=== PATIENT | male | born 1975 | race Caucasian/White ===

== ENCOUNTER 2020-01-31 16:04 | Emergency (ER) | payer MEDICAID, OTHER ==
[~2020-01-31] VITALS: Ht 188 cm; Wt 70.3 kg
[2020-01-31 16:18] VITALS: BP 176/125
[2020-01-31] MEDS ORDERED: NAPROXEN 500 MG TABLET PO SCH (16:30)
[2020-01-31] MEDS ORDERED: NAPROXEN 250 MG TABLET ONE (16:35)
== END 2020-01-31 16:49 | disposition home or self-care (01) ==
LOC: ER 16:04
DX: G89.29 Other chronic pain (principal); M54.5 Low back pain; L30.9 Dermatitis, unspecified; F17.200 Nicotine dependence, unspecified, uncomplicated; I10 Essential (primary) hypertension; Z59.0 Homelessness; Z88.0 Allergy status to penicillin

== ENCOUNTER → 2020-04-29 | Emergency (ER) | payer MEDICAID ==
--- NOTE | 2020-04-29 17:37 | NUR ---
PT BIB [facility] AND PT REFUSED TO BE TRIAGED OR SEEN. PT GOT OFF THE GURNEY AND LEFT. DR CORRALES IS AWARE.
== END | disposition left against medical advice (07) ==
LOC: ER 17:31
DX: Z53.21 Procedure and treatment not carried out due to patient leaving prior to being seen by health care provider (principal)

== ENCOUNTER 2020-06-03 19:33 | Emergency (ER) | payer MEDICAID ==
[~2020-06-03] VITALS: Ht 188 cm; Wt 72.6 kg
[2020-06-03 19:38] VITALS: BP 121/67
--- NOTE | 2020-06-03 19:53 | NUR ---
BIBRA 878 FROM A [facility] FOR C/O BOTH ARMS AND LEGS AND CHRONIC LOWER BILATERAL EXTREMITY. PATIENT IS AAOX4. NO SOB. BREATHING EVENLY AND UNLABORED ON ROOM AIR. CONNECTED TO MONITOR.
[2020-06-03] MEDS ORDERED: CHLORDIAZEPOXIDE HCL 25 MG CAPSULE PO ONE (20:00)
--- NOTE | 2020-06-03 20:00 | NUR ---
TAKEN TO THE CT
[2020-06-03] MEDS ORDERED: CHLORDIAZEPOXIDE HCL 25 MG CAPSULE ONE (20:17)
--- NOTE | 2020-06-03 20:33 | NUR ---
MOTHER'S HELPER AT BEDSIDE FOR BLOOD DRAW
[2020-06-03 20:49] LABS: BASOPHILS # (AUTO) 0.1 /CMM (0.0-0.2); BASOPHILS % (AUTO) 0.9 % (0.0-2.0); EOSINOPHILS % (AUTO) 0.9 % (0.0-6.0); HEMATOCRIT 31 % (39-51); LYMPHOCYTES # (AUTO) 1.5 /CMM (0.8-4.8); LYMPHOCYTES % (AUTO) 16.8 % (20.0-44.0); MEAN CORPUSCULAR HGB CONC 33 g/dl (31.0-36.0); MEAN CORPUSCULAR VOLUME 96 fL (80-96); MONOCYTES # (AUTO) 0.6 /CMM (0.1-1.30); NEUTROPHILS # (AUTO) 6.6 /CMM (1.8-8.9); NEUTROPHILS % (AUTO) 74.4 % (43.0-81.0); PLATELET COUNT (AUTO) 501 /CMM (150-450); RED BLOOD CELL COUNT(AUTO) 3.17 MIL/uL (4.5-6.0); WHITE BLOOD COUNT (AUTO) 8.9 K/uL (4.3-11.0)
[2020-06-03 20:57] LABS: CALCIUM, SERUM 8.7 mg/dL (8.5-10.1); CREATININE 1.1 mg/dL (0.6-1.3); POTASSIUM 3.3 mmol/L (3.5-5.1)
[2020-06-03] MEDS ORDERED: MAGNESIUM OXIDE 400 MG TABLET PO ONE (21:30)
[2020-06-03] MEDS ORDERED: POTASSIUM CHLORIDE 20 MEQ TAB.PRT.SR PO ONE ×2 (21:30→22:09)
[2020-06-03] MEDS ORDERED: IBUPROFEN 600 MG TABLET PO ONE ×2 (21:30→22:09)
--- NOTE | 2020-06-03 22:22 | NUR ---
PATIENT IS RUDE TO STAFF. CURSING AT MULTIPLE STAFFERS. SECUTIRY CALLED.
--- NOTE | 2020-06-03 22:23 | NUR ---
Patient discharged to home in stable condition. Written and verbal after care instructions given. Patient verbalizes understanding of instruction.
== END 2020-06-03 22:25 | disposition home or self-care (01) ==
LOC: ER 19:34
DX: S40.021A Contusion of right upper arm, initial encounter (principal); F10.10 Alcohol abuse, uncomplicated; G89.29 Other chronic pain; M54.5 Low back pain; E87.6 Hypokalemia; E83.42 Hypomagnesemia; D64.9 Anemia, unspecified; R51 Headache; R00.0 Tachycardia, unspecified; I10 Essential (primary) hypertension; Y90.9 Presence of alcohol in blood, level not specified; Z88.0 Allergy status to penicillin; Z59.0 Homelessness; Z90.89 Acquired absence of other organs; W18.39XA Other fall on same level, initial encounter; Y93.89 Activity, other specified; Y92.89 Other specified places as the place of occurrence of the external cause; Y99.8 Other external cause status
CPT/HCPCS: 36415; 70450-TC; 72100-TC; 73090-TC; 73110; 73130-TC; 80048-TC; 83735-TC; 85025-TC; 85730-TC

== ENCOUNTER 2022-11-05 13:22 | Emergency (ER) | payer MEDICAID ==
[~2022-11-05] VITALS: Ht 172.7 cm; Wt 72.6 kg
[2022-11-05 13:37] VITALS: BP 137/84
--- NOTE | 2022-11-05 13:43 | NUR ---
Dr Fitzgerald saw pt in the ambulance bay-Pt refusing any and ALL intervention states "I have no medical complaints" Walked out/eloped
== END 2022-11-05 13:44 | disposition home or self-care (01) ==
LOC: ER 13:24
DX: T40.411A Poisoning by fentanyl or fentanyl analogs, accidental (unintentional), initial encounter (principal); I10 Essential (primary) hypertension; Z88.0 Allergy status to penicillin; Z59.00 Homelessness unspecified; G89.29 Other chronic pain; M54.50 Low back pain, unspecified; F17.200 Nicotine dependence, unspecified, uncomplicated; Y92.511 Restaurant or cafe as the place of occurrence of the external cause

== ENCOUNTER 2022-11-05 22:04 | Emergency (ER) | payer MEDICAID ==
[~2022-11-05] VITALS: Ht 172.7 cm; Wt 72.6 kg
[2022-11-05 22:38] VITALS: BP 136/70
--- NOTE | 2022-11-06 02:17 | NUR ---
PT IN ROOM. ALL NEEDS MET AT THIS TIME.
== END 2022-11-06 04:04 | disposition home or self-care (01) ==
LOC: ER 22:25
DX: F10.129 Alcohol abuse with intoxication, unspecified (principal); I10 Essential (primary) hypertension; G89.29 Other chronic pain; F17.200 Nicotine dependence, unspecified, uncomplicated; Z88.0 Allergy status to penicillin; Z59.00 Homelessness unspecified; Y90.9 Presence of alcohol in blood, level not specified
CPT/HCPCS: 82962-TC